=== PATIENT | female | born 1960 | race Caucasian/White ===

== ENCOUNTER 2023-12-11 11:51 | Emergency (ER) | payer OTHER, SELFPAY ==
[2023-12-11] VITALS (7 sets, daily range): BP systolic 124–162; BP diastolic 63–86
--- NOTE | 2023-12-11 12:03 | ED.GENMED ---
History of Present Illness
General
Chief Complaint: Chest Pain
Source: patient
Exam Limitations: none
Time Seen by Provider: 12/11/23 12:02
Travel History
Have you had any contact with someone who has COVID-19?: No
Do you have any symptoms of coronavirus? Fever > 100 degrees, chills, cough, shortness of breath, sore throat, loss of taste or smell, muscle aches, or headache?: No
History of Present Illness
History of Present Illness:
63-year-old female started with upper abdominal pain radiation to the mid back about an hour ago. Moderately improved. Came on at rest. No diaphoresis pleuritic pain or shortness of breath. Patient has a known history of gallstones but has never
had biliary colic. Previously picked up incidentally. No radiation to the arm.. Mild radiation to the neck posteriorly.
Past History
Past History
ED Past Medical History: Other (Prediabetic)
ED Past Surgical History: , Gynecological and Other (Eye surgery)
Social History
Tobacco: Non-smoker
Alcohol: None
Drug: None
Personal:
Living: with family
Family History
Family History: CAD
Review of Systems
Review of Systems
All Other Systems: Not applicable
Constitutional: Denies fever
Respiratory: Reports no symptoms
: Reports no symptoms
Phy Exam
Physical Exam
Physical Exam:
GENERAL: Alert and oriented in no apparent distress
EYE: Orbits normal.
NECK: Supple, no significant adenopathy.
ENT: Pharynx without erythema
CARDIAC: Regular rate and rhythm without any obvious murmurs.
LUNGS: Clear breath sounds,normal
ABDOMEN: Soft, bowel sounds present. Very minimal midepigastric tenderness. No rebound or guarding no mass or hernia
NEUROLOGICAL: Alert and oriented , grossly non-focal
SKIN: Warm and dry, no rash or lesion, no discoloration, skin intact.
MUSCULOSKELETAL: No edema,no deformity.Good color
PSYCH: Normal and appropriate interaction.
Scores
Heart Score for Chest Pain Patients
STEMI patient?: Not applicable
Course
Orders/Labs/Results
Orders:
Orders
12/11/23 11:58
Electrocardiogram (*1) Urgent
Reason for Study: Chest Pain
EKG- Treatment ONCE
12/11/23 12:12
Cardiac Monitoring- Treatment ONCE
IV Insert/Care/Rem.- Treatment PRN
Pulse Ox/cont/shift [RESP] Stat
Quantity: 1
US Abdomen Complete/Upper Urgent
Comment:
Reason For Exam: Upper abdominal pain/known gallstones
12/11/23 12:17
Complete Blood Count/With Diff Urgent
Comprehensive Metabolic Panel Urgent
D-Dimer Urgent
Lipase Urgent
Troponin I Urgent
12/11/23 13:06
CT Chest Angio W/wo Iv Contras Urgent
Comment:
Reason For Exam: chest pain to back
12/11/23 14:19
Mag Hydrox/Al Hydrox/Simeth [Maalox] 30 ml Phenobarb/Hyoscy/Atropine/Scop [] 10 ml PO NOW
12/11/23 14:34
Mag Hydrox/Al Hydrox/Simeth [Maalox] 30 ml .ROUTE .STK-MED ONE
Phenobarb/Hyoscy/Atropine/Scop [] 10 ml .ROUTE .STK-MED ONE
12/11/23 15:19
Electrocardiogram (*1) Stat
Reason for Study: Other
Other Reason for Exam: chest pain
EKG- Treatment ONCE
12/11/23 15:28
Troponin I Urgent
Abnormal Lab Results
12/11/23
12:17
MPV 10.5 H fL
(7.4-10.4)
Chloride 108 H mmol/L
(98-107)
Carbon Dioxide 20 L mmol/L
(22-30)
Glucose 105 H mg/dl
(70-99)
AST 70 H U/L
(14-36)
ALT 81 H U/L
(0-35)
12/11/23 12:17
12/11/23 12:17
Vital Signs
Initial and Last Documented VS:
Initial Vital Signs
Temp Pulse Resp BP Pulse Ox
98.3 F 110 18 151/86 98
12/11/23 11:54 12/11/23 11:54 12/11/23 11:54 12/11/23 11:54 12/11/23 11:54
Last Documented Vital Signs
Temp Pulse Resp BP Pulse Ox
98.3 F 91 18 127/74 94
12/11/23 11:54 12/11/23 16:30 12/11/23 16:30 12/11/23 16:00 12/11/23 16:30
MDM/Problems Addressed
Differential Diagnosis Includes:
Patient with sudden epigastric pain radiation to the back started at rest. No history of same. Differential would include biliary colic/cholecystitis, gastritis. Doubt cardiac but needs rule out. Doubt dissection but needs CT scan. D-dimer
pending also.
*Radiology
Radiology exam reviewed: radiology read reviewed (CT angiography negative. Ultrasound gallstones no thickened wall.)
*Pulse Oximetry
Patient hypoxic: no
*EKG
Interpreted by ED Provider?: Yes
Interpretation: normal
Comparison EKG: no comparison EKG present
Heart Rate: 98
Rate: normal
Rhythm: sinus
[place]: normal axis
Interval: normal interval
QRS Pattern: normal QRS
Ischemia: no ischemia
*Critical Care Note
Total Time (30-74mins, 75-104mins- exclusive of procedures): Not Applicable
Data Reviewed
Review of Other/Old Records Reveals: Labs and Testing
Update Note
Update Note:
Repeat EKG normal sinus rhythm no acute changes. Patient is asymptomatic. Repeat troponin negative. Minimal LFT elevation likely from her fatty liver. This is known per the patient. Nothing to support acute cholecystitis. Stable for discharge
to follow-up
ED Attending Note
-
Portions of this chart may have been created with voice recognition software.� Occasional wrong word or��sound alike� substitutions may have occurred due to the inherent limitations of voice recognition software.
Discharge Plan
Departure
Patient Disposition: Home (Routine Discharge)
Date of Disposition: 12/11/23
Time of Disposition: 17:03
Patient with high blood pressure during this ER visit?: Yes
Discharge Problem:
Upper abdominal pain, Suspect biliary colic
Instructions: Gallstones (DC), Abdominal Pain, Adult ED, BLOOD PRESSURE
Prescriptions:
No Action
hydrocodone-acetaminophen 1 TABLET tablet
1 tab PO Q4HPRN PRN (Reason: severe pain) Qty: 15 0RF
Referrals:
Amina Palmer MD [Family Provider] - Follow up in 2-3 days
Jerrell Kern MD [Active] - Next open appointment
Interventions
Interventions:
ED- Cardiac Assessment Last Done: 12/11/23 12:18
[2023-12-11 12:31] LABS: % Basophils 1.3 % (0-2); % Eosinophils 2.4 % (0-6); % Immature Granulocytes 0.4 % (0-0.5); % Monocytes 5.4 % (1.7-9.3); % Neutrophils 63.5 % (42.2-75.2); Absolute Basophils 0.1 10^3/uL (0-0.2); Absolute Eosinophils 0.1 10^3/uL (0-0.7); Absolute Lymphocytes 1.5 10^3/uL (1.2-3.4); Absolute Monocytes 0.3 10^3/uL (0.1-0.6); Absolute Neutrophils 3.4 10^3/uL (1.4-6.5); Hematocrit 42.3 % (37.0-47.0); Hemoglobin 14.7 g/dL (12.0-16.0); Mean Corp Hgb Conc. 34.8 g/dL (33.0-37.0); Mean Corpuscular Hgb 30.4 pg (27.0-31.0); Mean Corpuscular Volume 87.6 fL (81.0-99.0); Mean Platelet Volume 10.5 fL (7.4-10.4); Nucleated Red Blood Cells % 0 %; Platelet Count 272 10^3/uL (130-400); Red Blood Cell Count 4.83 10^6/uL (4.20-5.40); Red Cell Dist. Width 12.6 % (11.5-14.5); White Blood Cell Count 5.4 10^3/uL (4.8-10.8)
[2023-12-11 12:39] LABS: ALT (SGPT) 81 U/L (0-35); AST (SGOT) 70 U/L (14-36); Albumin 4.3 g/dl (3.5-5.0); Alkaline Phosphatase 97 U/L (38-126); Blood Urea Nitrogen 15 mg/dl (7-17); Calcium 8.8 mg/dl (8.4-10.2); Carbon Dioxide 20 mmol/L (22-30); Chloride 108 mmol/L (98-107); Glucose 105 mg/dl (70-99); Lipase 128 U/L (23-300); Potassium 3.9 mmol/L (3.5-5.1); Sodium 136 mmol/L (135-145); Total Bilirubin 1.1 mg/dl (0.2-1.3); Total Protein 6.8 g/dl (6.3-8.2); eGFR > 60.00
[2023-12-11 12:40] LABS: D-Dimer 0.28 ug/mlFEU (0.00-0.50)
[2023-12-11 12:51] LABS: Troponin I < 0.012 ng/ml
[2023-12-11] MEDS: MAALOX 40 PO (14:37)
[2023-12-11 16:09] LABS: Troponin I < 0.012 ng/ml
== END 2023-12-11 17:21 | disposition home or self-care (01) ==
LOC: EMR 11:51
PROVIDERS: EMERGENCY PHYSICIAN Emergency Medicine; FAMILY PHYSICIAN Family Medicine
DX: R10.10 Upper abdominal pain, unspecified (principal); R10.13 Epigastric pain; K80.20 Calculus of gallbladder without cholecystitis without obstruction; R03.0 Elevated blood-pressure reading, without diagnosis of hypertension
CPT/HCPCS: 99285; 71275; 76700; 80053; 83690; 84484; 85025; 85379; 93005; Q9967

== ENCOUNTER → 2024-02-04 07:32 | Outpatient (REF) | payer MEDICARE, OTHER, SELFPAY | LOC: HWWDC 07:32 | PROVIDERS: ATTENDING PHYSICIAN Family Medicine | DX: Z12.31 Encounter for screening mammogram for malignant neoplasm of breast (principal) | CPT/HCPCS: 77063; 77067 ==

== ENCOUNTER → 2024-03-24 06:41 | Outpatient (REF) | payer MEDICARE, OTHER, SELFPAY ==
[2024-03-24 09:38] LABS: Hematocrit 43.9 % (37.0-47.0); Hemoglobin 14.3 g/dL (12.0-16.0); Mean Corp Hgb Conc. 32.6 g/dL (33.0-37.0); Mean Corpuscular Hgb 29.2 pg (27.0-31.0); Mean Corpuscular Volume 89.6 fL (81.0-99.0); Mean Platelet Volume 10.8 fL (7.4-10.4); Platelet Count 269 10^3/uL (130-400); Red Cell Dist. Width 13.2 % (11.5-14.5); White Blood Cell Count 5.1 10^3/uL (4.8-10.8)
[2024-03-24 10:09] LABS: ALT (SGPT) 72 U/L (0-35); AST (SGOT) 60 U/L (14-36); Albumin 4.1 g/dl (3.5-5.0); Alkaline Phosphatase 74 U/L (38-126); Blood Urea Nitrogen 19 mg/dl (7-17); Calcium 9.3 mg/dl (8.4-10.2); Carbon Dioxide 23 mmol/L (22-30); Chloride 107 mmol/L (98-107); Glucose 85 mg/dl (70-99); Potassium 4.4 mmol/L (3.5-5.1); Sodium 138 mmol/L (135-145); Total Bilirubin 0.6 mg/dl (0.2-1.3); Total Protein 6.5 g/dl (6.3-8.2); eGFR > 60.00
== END ==
LOC: SDSPAT 06:41
PROVIDERS: ATTENDING PHYSICIAN Surgery; FAMILY PHYSICIAN Family Medicine; OTHER PHYSICIAN Internal Medicine Gastroenterology
DX: Z01.818 Encounter for other preprocedural examination (principal)
CPT/HCPCS: 36415; 80053; 85027

== ENCOUNTER 2024-04-07 06:12 | Day surgery (SDC) | payer MEDICARE, OTHER, SELFPAY ==
[2024-03-24 06:52] VITALS: BMI 33.5
[2024-04-07] VITALS (8 sets, daily range): BP systolic 104–138; BP diastolic 59–77; BMI 33.5
--- NOTE | 2024-04-07 07:14 | HP.FOC2 ---
Focused History & Physical
Chief Complaint
HPI:
Chief Complaint: Symptomatic cholelithiasis, common bile duct dilation
HPI / Indication for Planned Procedure: Patient is a 64-year-old female recently seen in outpatient surgical evaluation after presenting to the emergency department secondary to the acute onset of upper abdominal pain rating to her back. She had
mild elevation of AST and ALT but normal bilirubin and CBC as well as lipase. She was found to have cholelithiasis with moderately distended gallbladder but no surrounding inflammatory changes. Gallstones were previously discovered in 2018 during
surveillance ultrasound imaging of her liver for fatty liver but had not experienced any biliary colic previously. She presents today for scheduled cholecystectomy
Relevant Past Medical History: Other (Eczema, hypothyroidism, migraines, hypertension, osteoporosis, glaucoma)
Relevant Social History: Negative
Relevant Family History: Negative
Relevant Past Surgical History: Positive for ( x 3, removal vaginal cyst, cataracts)
Review of Systems
Review of Pertinent Systems: All Systems Negative
Medication
See Medication form for detailed medications: Yes
Medication List (including Herbals & OTC):
Zinc W/ Selenium 1 cap PO DAILY 04/05/24
cholecalciferol (vitamin D3) 50 mcg (2,000 unit) capsule (Vitamin D3) 50 mcg PO DAILY 04/05/24
cyclobenzaprine 10 mg tablet 10 mg PO HS 04/05/24
cyclosporine 0.09 % eye drops in a dropperette (Cequa) 1 drp ophthalmic (eye) Q12H 04/05/24
levothyroxine 50 mcg tablet 50 mcg PO DAILY 04/05/24
magnesium gluconate 1 dose PO DAILY 04/05/24
mecobalamin (vitamin B12) 1,000 mcg chewable tablet 1,000 mcg PO DAILY 04/05/24
topiramate 50 mg tablet (Topamax) 50 mg PO BID 04/05/24
trazodone 50 mg tablet 100 mg PO HS 04/05/24
valacyclovir 1 gram tablet 1,000 mg PO PRN PRN cold sores 04/05/24
verapamil 240 mg tablet,extended release 240 mg PO DAILY 04/05/24
vitamin B complex 1 cap PO DAILY 04/05/24
Medications Reviewed: Yes
Allergies and Reactions
Patient has Allergies: Yes
Noted Allergies and Reactions:
Allergy/AdvReac Type Severity Reaction Status Date / Time
losartan Allergy Rash Verified 04/05/24 08:59
Penicillins Allergy MOUTH Verified 04/05/24 08:59
ULCERS AND
RASH
vortioxetine Allergy Rash Verified 04/05/24 08:59
[From [employer]]
Pertinent Physical Exam
All Other Systems: Negative
Head/Neck: Normal
Lungs: Normal
Heart: Normal
Abdomen: Normal
Extremities: Normal
Neurological: Normal
Diagnosis / Assessment
64-year-old female presenting for cholecystectomy for management of symptomatic cholelithiasis
Plan / Procedure
Laparoscopic cholecystectomy with intraoperative cholangiogram
Anesthesia/Sedation to be done by Anesthesia Provider: Yes
[2024-04-07] MEDS: TYLENOL 1000 MG PO (08:43)
[2024-04-07] MEDS: NORMOSOL-R 1000 IV (08:44)
--- NOTE | 2024-04-07 09:13 | W.SUR.PREOP ---
Pre-Operative Surgical Note
-
I have examined this patient prior to the performance of the scheduled procedure.
The patient's condition is unchanged from the time of the current History and
Physical and the patient is able to undergo the scheduled procedure.
--- NOTE | 2024-04-07 11:21 | W.IMMPOSTOP ---
Addendum entered and electronically signed by Jerrell Kern MD 04/07/24 11:35:
The assistance of Gisel Kat PA-c was required due to the complexity of the procedure. During the procedure Gisel Kat PA-c assisted with retraction, cholecystectomy, and closure of the incision sites .
#[id number]
Original Note:
Surgical Immed Post Op Note
-
Primary Surgeon: Concha
Assisting Surgeon: Gisel Kat PA-c
Pre-op Diagnosis: Symptomatic cholelithiasis
Post-op Diagnosis: Symptomatic cholelithiasis
Procedure Performed: Laparoscopic cholecystectomy with intraoperative cholangiogram
Anesthesia Type: GETA +0.25% Marcaine
Specimen / Cultures: Gallbladder
Estimated Blood Loss: 16 mL
Complications: None immediate
Operative Findings: Distended gallbladder with stones. Hepatomegaly due to fatty liver. Cystic duct and artery individually identified and controlled with hemoclips. Intraoperative cholangiogram normal. Some superficial oozing from liver capsule
in setting of hepatosteatosis and thin capsule/gallbladder attachments.
[2024-04-07] MEDS: ROXICODONE 10 MG PO (12:16)
== END 2024-04-07 12:49 | disposition home or self-care (01) ==
LOC: SDS 06:12
PROVIDERS: ATTENDING PHYSICIAN Surgery; FAMILY PHYSICIAN Family Medicine
DX: K80.10 Calculus of gallbladder with chronic cholecystitis without obstruction (principal); K82.8 Other specified diseases of gallbladder
CPT/HCPCS: 47563; 88304; 74300; 76000

== ENCOUNTER → 2024-12-01 15:53 | Outpatient (REF) | payer MEDICARE, OTHER, SELFPAY | LOC: HWRCS 15:53 | PROVIDERS: ATTENDING PHYSICIAN Family Medicine | DX: I44.7 Left bundle-branch block, unspecified (principal); I34.0 Nonrheumatic mitral (valve) insufficiency | CPT/HCPCS: 93306 ==

== ENCOUNTER → 2024-12-06 14:01 | Outpatient (REF) | payer MEDICARE, OTHER, SELFPAY | LOC: HWEVLT 14:01 | PROVIDERS: ATTENDING PHYSICIAN Radiology Diagnostic Radiology | DX: I83.893 Varicose veins of bilateral lower extremities with other complications (principal) | CPT/HCPCS: 93970 ==

== ENCOUNTER 2024-12-09 11:09 | Emergency (ER) | payer MEDICARE, OTHER, SELFPAY ==
[2024-12-09] VITALS (8 sets, daily range): BP systolic 106–145; BP diastolic 66–89; BMI 34.6
--- NOTE | 2024-12-09 12:06 | ED.GENMED ---
History of Present Illness
General
Chief Complaint: Chest Pain
Source: patient
Time Seen by Provider: 12/09/24 11:54
History of Present Illness
History of Present Illness:
64-year-old female presents to the emergency room complaining of chest pain. Patient has been having intermittent chest discomfort for the past 5 hours or so. The pain begins without activity. It lasts for about 10 minutes and then goes away.
She describes it as a pressure-like sensation in her left chest associated with tingling in her left hand. She felt short of breath going up a flight of steps today which is unusual for her. Patient was seen by her family doctor recently for a
normal checkup and an EKG at that time revealed a new left bundle branch block. Patient had an echocardiogram performed here at [facility] within the past few days. Patient denies any fever, chills, sore throat. Patient denies any recent
hospitalizations, long car rides or long plane rides.
Past History
Past History
ED Past Medical History: Other (Prediabetic)
ED Past Surgical History: , Gynecological and Other (Eye surgery)
Social History
Tobacco: Non-smoker
Alcohol: None
Drug: None
Personal:
Living: with family
Family History
Family History: CAD
Phy Exam
Physical Exam
Physical Exam:
General: Awake, Alert, Oriented X3. No acute distress.
Vitals: Mildly tachycardic
Head: Atraumatic
Eyes: Pupils equal, EOMI
Throat: Airway intact, no exudates
Neck: Trachea midline
Lungs: Clear and equal b/l
Heart: Regular rate, no murmurs
Abd: Soft, Nontender, No pulsatile mass
Neuro: Nonfocal
Skin: Warm, dry, no rash
Extremities: pulses equal b/l, trace edema
Scores
Heart Score for Chest Pain Patients
STEMI patient?: No
History: Moderately Suspicious
ECG: Nonspecific Repolarization
Age: >/= 65 years
Risk Factors: 1 or 2 Risk Factors
Troponin: </= Normal Limit
Heart Score for Chest Pain Patients: 5
Heart Score Risk: 20.3% MACE over next 6 weeks
Course
Orders/Labs/Results
Orders:
Orders
12/09/24
Electrocardiogram (*1) Stat
Reason for Study: Chest Pain
Comment: DONE
12/09/24 11:09
Electrocardiogram (*1) Urgent
Reason for Study: Chest Pain
EKG- Treatment ONCE
12/09/24 12:04
Aspirin Chewable [Low Strength Aspirin] 324 mg PO NOW STA
12/09/24 12:05
CR Chest - 2 Views Urgent
Comment:
Reason For Exam: chest pain
12/09/24 12:16
Complete Blood Count/With Diff Urgent
Comprehensive Metabolic Panel Urgent
Magnesium Urgent
NT-proBNP Urgent
Troponin I Urgent
12/09/24 15:59
EKG [Electrocardiogram (*1)] Urgent
Reason for Study: Tachycardia
EKG- Treatment ONCE
Troponin I Urgent
12/09/24 17:13
ECG [Electrocardiogram (*1)] Urgent
Reason for Study: Other
Other Reason for Exam: CHEST PRESSURE
EKG- Treatment ONCE
Abnormal Lab Results
12/09/24
12:16
MPV 10.9 H fL
(7.4-10.4)
Chloride 108 H mmol/L
(98-107)
BUN 18 H mg/dl
(7-17)
ALT 39 H U/L
(0-35)
12/09/24 12:16
12/09/24 12:16
Vital Signs
Initial and Last Documented VS:
Initial Vital Signs
Temp Pulse Resp BP Pulse Ox
97.7 F 103 16 133/82 98
12/09/24 11:17 12/09/24 11:17 12/09/24 11:17 12/09/24 11:17 12/09/24 11:17
Last Documented Vital Signs
Temp Pulse Resp BP Pulse Ox
97.7 F 89 18 124/68 96
12/09/24 11:17 12/09/24 17:27 12/09/24 17:27 12/09/24 17:27 12/09/24 17:15
MDM/Problems Addressed
Differential Diagnosis Includes:
Acute coronary syndrome, NSTEMI, chest wall pain
MDM/Problems Addressed:
Patient presents with chest pain that occurred while going up steps. EKG here shows no acute ischemic changes. First troponin is normal. Second troponin is normal then we will give discharge instructions and place her on the chest pain hotline to
ensure close follow-up.Patient had several EKGs without any interval change or evolution
*Radiology
Radiology exam reviewed: preliminary read by ED provider (No acute disease on my review of the patient's chest x-ray)
*Pulse Oximetry
Patient hypoxic: no
*EKG
Interpreted by ED Provider?: Yes
Interpretation: abnormal
Heart Rate: 100
Rate: normal
Rhythm: sinus
[place]: left axis deviation
QRS Pattern: left bundle branch block
Ischemia: non-specific ST changes
*[employer] Sales Representative Interpretation
Rate: normal
Rhythm: sinus
*Critical Care Note
Total Time (30-74mins, 75-104mins- exclusive of procedures): Not Applicable
ED Attending Note
-
Portions of this chart may have been created with voice recognition software.� Occasional wrong word or��sound alike� substitutions may have occurred due to the inherent limitations of voice recognition software.
Discharge Plan
Departure
Patient Disposition: Home (Routine Discharge)
Date of Disposition: 12/09/24
Time of Disposition: 17:26
Patient with high blood pressure during this ER visit?: Yes
Condition: Good
Discharge Problem:
Chest pain
Instructions: Chest Pain DCA Follow Up
Prescriptions:
No Action
cyclobenzaprine 10 mg Tablet
10 mg PO HS
trazodone 50 mg Tablet
100 mg PO HS
levothyroxine 50 mcg Tablet
50 mcg PO DAILY
verapamil 240 mg Tablet Extended Release
240 mg PO DAILY
topiramate [Topamax] 50 mg Tablet
50 mg PO HS
vitamin B complex Capsule
1 cap PO DAILY
albuterol sulfate 90 mcg/actuation Hfa Aerosol Inhaler
1 puff INHALATION R Q4HPRN PRN (Reason: sob)
hydroxyzine HCl 10 mg Tablet
10 mg PO HS
metformin 500 mg Tablet Extended Release 24 Hr
1,000 mg PO QPM
cholecalciferol (vitamin D3) [Vitamin D3] 50 mcg (2,000 unit) Tablet
50 mcg PO DAILY
cyclosporine 0.05 % Drops
1 drp BOTH EYES BID
Systane (PF) 0.4-0.3 % Dropperette
1 drp BOTH EYES DAILYPRN PRN (Reason: dry eyes)
Referrals:
Amina Palmer MD [Family Provider] -
Interventions
Interventions:
*Risk Screen - Suicide Last Done: 12/09/24 11:17
*General Assessment Last Done: 12/09/24 12:16
*Neglect/Abuse Screening Last Done: 12/09/24 11:17
ED- Fall Risk Assessment Last Done: 12/09/24 12:18
*ED COVID-19 Vaccine History Last Done: 12/09/24 12:16
*Nursing Disposition Last Done: 12/09/24 17:36
ED- Cardiac Assessment Last Done: 12/09/24 12:18
Discharge Date and Time
Discharge Date/Time: 12/09/24 17:37
Print Language: [place]
[2024-12-09] MEDS: LOW STRENGTH ASPIRIN 324 MG PO (12:10)
[2024-12-09 12:25] LABS: % Basophils 1.1 % (0-2); % Eosinophils 1.9 % (0-6); % Immature Granulocytes 0.2 % (0-0.5); % Lymphocytes 24.2 % (20.5-51.1); % Monocytes 6.4 % (1.7-9.3); % Neutrophils 66.2 % (42.2-75.2); Absolute Basophils 0.1 10^3/uL (0-0.2); Absolute Eosinophils 0.1 10^3/uL (0-0.7); Absolute Lymphocytes 1.3 10^3/uL (1.2-3.4); Absolute Monocytes 0.3 10^3/uL (0.1-0.6); Absolute Neutrophils 3.5 10^3/uL (1.4-6.5); Hematocrit 42.7 % (37.0-47.0); Mean Corp Hgb Conc. 35.1 g/dL (33.0-37.0); Mean Corpuscular Hgb 30.4 pg (27.0-31.0); Mean Corpuscular Volume 86.4 fL (81.0-99.0); Mean Platelet Volume 10.9 fL (7.4-10.4); Nucleated Red Blood Cells % 0 %; Platelet Count 273 10^3/uL (130-400); Red Blood Cell Count 4.94 10^6/uL (4.20-5.40); Red Cell Dist. Width 12.7 % (11.5-14.5); White Blood Cell Count 5.3 10^3/uL (4.8-10.8)
[2024-12-09 12:39] LABS: ALT (SGPT) 39 U/L (0-35); AST (SGOT) 34 U/L (14-36); Albumin 4.1 g/dl (3.5-5.0); Alkaline Phosphatase 62 U/L (38-126); Blood Urea Nitrogen 18 mg/dl (7-17); Calcium 9.4 mg/dl (8.4-10.2); Carbon Dioxide 26 mmol/L (22-30); Chloride 108 mmol/L (98-107); Estimated Creatinine Clearance 86 ml/min; Glucose 98 mg/dl (70-99); Magnesium 2.1 mg/dl (1.6-2.3); Potassium 4.5 mmol/L (3.5-5.1); Sodium 140 mmol/L (135-145); Total Bilirubin 0.4 mg/dl (0.2-1.3); Total Protein 6.4 g/dl (6.3-8.2); eGFR > 60.00
[2024-12-09 12:49] LABS: Troponin I < 0.012 ng/ml
[2024-12-09 13:37] LABS: NT-proBNP 130 pg/ml
[2024-12-09 16:32] LABS: Troponin I < 0.012 ng/ml
== END 2024-12-09 17:37 | disposition home or self-care (01) ==
LOC: EMR 11:09
PROVIDERS: EMERGENCY PHYSICIAN Emergency Medicine; FAMILY PHYSICIAN Family Medicine
DX: R07.89 Other chest pain (principal); R20.2 Paresthesia of skin; R06.02 Shortness of breath; R03.0 Elevated blood-pressure reading, without diagnosis of hypertension; I44.7 Left bundle-branch block, unspecified; R00.0 Tachycardia, unspecified; R73.03 Prediabetes; Z88.0 Allergy status to penicillin; Z88.8 Allergy status to other drugs, medicaments and biological substances
CPT/HCPCS: 99284; 71046; 80053; 83735; 83880; 84484; 85025; 93005

== ENCOUNTER → 2025-09-07 06:51 | Outpatient (REF) | payer MEDICARE, OTHER, SELFPAY | LOC: RAD 06:51 | PROVIDERS: ATTENDING PHYSICIAN Nurse Practitioner Family; FAMILY PHYSICIAN Family Medicine | DX: R22.1 Localized swelling, mass and lump, neck (principal) | CPT/HCPCS: 76536 ==

== ENCOUNTER → 2025-09-21 07:45 | Outpatient (REF) | payer MEDICARE, OTHER, SELFPAY | LOC: HWWDC 07:45 | PROVIDERS: ATTENDING PHYSICIAN Family Medicine | DX: Z12.31 Encounter for screening mammogram for malignant neoplasm of breast (principal) | CPT/HCPCS: 77063; 77067 ==